=== PATIENT | female | born 1960 | race Asian ===

== ENCOUNTER → 2016-09-30 | Outpatient (CLI) | payer OTHER | LOC: CIMAGING 10:57 | DX: Z12.31 Encounter for screening mammogram for malignant neoplasm of breast (principal) | CPT/HCPCS: G0202 ==

== ENCOUNTER → 2017-11-10 | Outpatient (CLI) | payer OTHER | LOC: CIMAGING 10:26 | PROVIDERS: ATTEND Family Medicine | DX: Z12.31 Encounter for screening mammogram for malignant neoplasm of breast (principal) ==

== ENCOUNTER → 2018-11-12 | Outpatient (CLI) | payer OTHER | LOC: CIMAGING 09:48 ==